=== PATIENT | male | born 1980 | race Asian ===

== ENCOUNTER 2017-07-10 21:36 | Emergency (ER) | payer OTHER ==
[~2017-07-10] VITALS: Ht 177.8 cm; Wt 93.2 kg
[2017-07-10 21:38] VITALS: Ht 177.8 cm; Wt 93.2 kg
[2017-07-10 21:40] VITALS: BP 125/86; PULSE 78; RESP 18; TEMP 98.6
[2017-07-10] MEDS ORDERED: LEVETIRACETAM 1000 MG (PMX) 100 ML IVPB STA (21:48)
[2017-07-10] MEDS ORDERED: SOD CHLORIDE 0.9% 1,000 ML IV STA (21:48)
[2017-07-10] MEDS ORDERED: LORAZEPAM 2 MG INJ IV ONE (22:00)
[2017-07-10 22:39] LABS: BASOPHILS % 0.3 % (0.0-2.0); EOSINOPHILS % 0.1 % (0.0-7.0); HEMOGLOBIN 15.2 g/dl (14.0-18.0); LYMPHOCYTES # 2.6 10^3/ul (0.8-2.9); LYMPHOCYTES % 18.9 % (15.0-51.0); MEAN CORPUSCULAR HEMOGLOBIN 30.9 pg (29.0-33.0); MEAN CORPUSCULAR HGB CONC 35.3 g/dl (32.0-37.0); MEAN CORPUSCULAR VOLUME 87.4 fl (82.0-101.0); MONOCYTES % 7.1 % (0.0-11.0); NEUTROPHIL # 10.2 10^3/ul (1.6-7.5); NEUTROPHILS % 73.2 % (39.0-77.0); PLATELET COUNT 210 10^3/UL (140-415); RED BLOOD COUNT 4.92 10^6/ul (4.70-6.10); RED CELL DISTRIBUTION WIDTH 12.7 % (11.5-14.5)
[2017-07-10 23:00] LABS: CALCIUM 9.5 mg/dl (8.4-10.2); CREATININE 0.75 mg/dl (0.61-1.24); POTASSIUM 3.6 mmol/L (3.5-5.1)
--- NOTE | 2017-07-10 23:38 | RADRPT ---
PROCEDURE: Noncontrast CT Head. CLINICAL INDICATION: Seizure TECHNIQUE: Noncontrast CT of the head was obtained. The administered radiation dose was CTDI vol = 45.01 mGy, DLP = 810.25 mGy-cm. One or more of the following dose reduction techniques were used: Au tomated exposure control, Adjustment of the mA and/or kV according to patient size, or Use of iterat aniyah reconstruction technique. COMPARISON: There are no similar studies submitted for comparison. FINDINGS: Motion artifact slightly limits evaluation. There is no acute intracranial hemorrhage, midline shift, or mass effect. The cerebral ascencio-white ma tter differentiation appears preserved. No extra-axial collection is seen. The cerebral sulci and ve ntricles are within normal limits in size and configuration for patient's age. Mild low attenuation in the periventricular and deep cerebral white matter is nonspecific, suggestive of mild chronic eduardo roangiopathic change. The basal cisterns are preserved. The brainstem and cerebellum are grossly unr emarkable, although suboptimally evaluated with CT secondary to beam-hardening artifact. The orbits are grossly unremarkable. There is small polypoid mucosal thickening or retention cysts in the left maxillary sinus. No air-fluid levels are seen. No the visualized mastoid air cells are clear. No acu te fracture or suspicious osseous lesion is identified. No IMPRESSION: 1. Motion artifact slightly limits evaluation. 2. No evidence of an acute intracranial process. 3. 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 RPTAT: [facility] Physician Sánchez Date Time Electronically viewed and signed by Physician Sánchez on 07/10/2017 23:37 RC/
--- NOTE | 2017-07-11 00:36 | ERD ---
ER Documentation Chief Complaint Chief Complaint JORDAN TRIPP from home,witnessed sz 45 secs,hx sz 6 years ago HPI This is a 36-year-old male was brought in by rescue from home with a witnessed seizure. Patient has had a history of seizure previously but last seizure 6 years ago. No tongue biting. No incontinence. No other current complaints. Patient awake and alert upon arrival to ER. ROS All systems reviewed and are negative except as per history of present illness. Medications Home Meds Active Scripts Levetiracetam* (Keppra*) 500 Mg Tablet, 500 MG PO BID for 30 Days, TAB Prov:JENNY COFFEY 07/11/17 Allergies Allergies: Coded Allergies: No Known Allergy (Unverified , 07/10/17) Physical Exam Vitals Vital Signs Date Time Temp Pulse Resp B/P Pulse Ox O2 Delivery O2 Flow Rate FiO2 07/10/17 21:38 98.6 117 18 125/86 97 Physical Exam Const: [] Head: Atraumatic Eyes: Normal Conjunctiva ENT: Normal External Ears, Nose and Mouth. Neck: Full range of motion..~ No meningismus. Resp: Clear to auscultation bilaterally Cardio: Regular rate and rhythm, no murmurs Abd: Soft, non tender, non distended. Normal bowel sounds Skin: No petechiae or rashes Back: No midline or flank tenderness Ext: No cyanosis, or edema Neur: Awake and alert Psych: Normal Mood and Affect Result Diagram: 07/10/17220407/10/172204 Results 24 hrs Laboratory Tests Test 07/10/17 22:05 White Blood Count 14.010^3/ul Red Blood Count 4.9210^6/ul Hemoglobin 15.2g/dl Hematocrit 43.0% Mean Corpuscular Volume 87.4fl Mean Corpuscular Hemoglobin 30.9pg Mean Corpuscular Hemoglobin Concent 35.3g/dl Red Cell Distribution Width 12.7% Platelet Count 44340^3/UL Mean Platelet Volume 11.0fl Neutrophils % 73.2% Lymphocytes % 18.9% Monocytes % 7.1% Eosinophils % 0.1% Basophils % 0.3% Nucleated Red Blood Cells % 0.0/100WBC Neutrophils # 10.210^3/ul Lymphocytes # 2.610^3/ul Monocytes # 1.010^3/ul Eosinophils # 0.010^3/ul Basophils # 0.010^3/ul Nucleated Red Blood Cells # 0.010^3/ul Sodium Level 139mmol/L Potassium Level 3.6mmol/L Chloride Level 103mmol/L Carbon Dioxide Level 19mmol/L Anion Gap 21 Blood Urea Nitrogen 7mg/dl Creatinine 0.75mg/dl Glucose Level 111mg/dl Calcium Level 9.5mg/dl Current Medications Medications (Trade) Dose Ordered Sig/Lalo Route PRN Reason Start Time Stop Time Status Last Admin Dose Admin Sodium Chloride 1,000 ml @ 1,000 mls/hr Q1H STAT IV 07/10/17 21:48 07/10/17 22:47 DC 07/10/17 21:50 Levetiracetam (Keppra 1,000mg/ 100ml (Pmx)) 100 ml @ 400 mls/hr ONCE STAT IVPB 07/10/17 21:48 07/10/17 22:02 DC 07/10/17 22:00 Lorazepam (Ativan) 1 mg ONCE ONCE IV 07/10/17 22:00 07/10/17 22:01 DC Procedures/MDM Medical decision-making: Very pleasant patient with recurrent seizure disorder. Given Keppra here in the emergency department. Started on Keppra as an outpatient. Advised to follow-up with neurologist and return for any seizure- like activity EKG: Rate/Rhythm: [Normal Sinus Rhythm] QRS, ST, T-waves: [No changes consistent w/ acute ischemia] Impression: [No evidence of ischemia or arrhythmia] Departure Diagnosis: Primary Impression: Seizure disorder Condition: Stable JENNY COFFEY Jul 11, 2017 00:36
[2017-07-11] MEDS ORDERED: LEVE-5 PO ×2 (00:37→00:39)
== END 2017-07-11 01:00 | disposition home or self-care (01) ==
LOC: E/R 21:36
DX: G40.909 Epilepsy, unspecified, not intractable, without status epilepticus (principal); R40.2142 Coma scale, eyes open, spontaneous, at arrival to emergency department; R40.2252 Coma scale, best verbal response, oriented, at arrival to emergency department; R40.2362 Coma scale, best motor response, obeys commands, at arrival to emergency department; R00.2 Palpitations
CPT/HCPCS: 36415; 70450; 80048; 85025; 96374; 99285; J1953; J2060; J7030